=== PATIENT | female | born 1980 | race Two or more races ===

== ENCOUNTER 2018-07-14 15:00 | Inpatient (IN) | END 2018-07-16 16:54 | disposition home or self-care (01) | DRG 807 ==

== ENCOUNTER 2018-11-18 15:22 | Day surgery (SDC) | payer MEDICAID ==
[~2018-11-18] VITALS: Ht 162.6 cm; Wt 80.7 kg
[2018-11-18] VITALS (36 sets, daily range): BP systolic 108–152; BP diastolic 55–78; PULSE 78–126; RESP 14–29; Ht 162.6 cm; Wt 80.7 kg
[~2018-11-18 15:22] MED LIST: CEFAZOLIN 1 GM INJ ONE; CEFAZOLIN 2 GM/50 ML (PMX) 50 ML (FOR WT < 120 KG) IVPB ONE; DESFLURANE 15 MIN ONE; DEXAMETHASONE 4 MG/ML 5 ML INJ ONE; LACTATED RINGER'S 1,000 ML IV SCH; LIDOCAINE 100 MG SYRINGE ONE; ONDANSETRON 4 MG INJ ONE; PREN1TAB71 PO; PROPOFOL 100 ML ONE; ROCURONIUM 50 MG INJ ONE; SOD CHLORIDE 0.9% 1,000 ML IV SCH; SUCCINYLCHOLINE CHLORIDE 100 MG/5 ML SYG IV ONE
[2018-11-18] MEDS ORDERED: LABETALOL HCL 20MG INJ IV PRN (15:30)
[2018-11-18] MEDS ORDERED: METOCLOPRAMIDE 10 MG INJ IV PRN (15:30)
[2018-11-18] MEDS ORDERED: FENTAnyl 50 MCG/ML VIAL IV PRN ×2 (15:30)
[2018-11-18] MEDS ORDERED: hydrALAzine 20 MG INJ IV PRN (15:30)
[2018-11-18] MEDS ORDERED: HYDROmorphONE 1 MG/5 ML IV SYRINGE IV PRN ×2 (15:30)
[2018-11-18] MEDS ORDERED: MEPERIDINE 25 MG INJ IV PRN (15:30)
[2018-11-18] MEDS ORDERED: ONDANSETRON 4 MG INJ IV PRN (15:30)
--- NOTE | 2018-11-18 15:32 | PREAC ---
Date/Time of Note Date/Time of Note DATE: 11/18/18 TIME: 15:31 Anesthesia Eval and Record Evaluation Time Pre-Procedure Interview DATE: 11/18/18 TIME: 15:31 Age 38 Sex female NPO: 8 hrs Preoperative diagnosis sterilization Planned procedure BILATERAL LAPAROSCOPIC TUBAL LIGATION Past Medical History Past Medical History: Includes GI: Obesity Surgery & Anesthesia Issues No known issue Meds Anticoagulation: No Beta Yoan within 24 hr: No Reason Beta Yoan not given: Pt. not on B-Yoan Reported Medications Vit No.130/Iron/FA ( Tablet) 1 Each Tablet, 1 EACH PO, TAB 07/14/18 Current Medications Lactated Ringer's 1,000 ml @ 25 mls/hr Q24H IV ; Start 11/18/18 at 13:00 Sodium Chloride 1,000 ml @ 25 mls/hr Q24H IV ; Start 11/18/18 at 13:00 Meds reviewed: Yes Allergies Coded Allergies: No Known Allergy (Verified , 07/14/18) Allergies Reviewed: Yes Labs/Studies Labs Reviewed: Reviewed by anesthesiologist test: Negative Pre-procedure Exam Airway: Adequate mouth opening Mallampati: Mallampati II Teeth: Normal Lung: Normal Heart: Normal ASA Physical Status ASA physical status: 2 Emergency: None Planned Anesthetic General/MAC: ETT Pre-operative Attestations Prior to commencing anesthesia and surgery, the patient was re-evaluated, there was verification of: *The patient's identity *The results of appropriate recent lab work and preoperative vital signs *The above evaluation not changing prior to induction *Anesthetic plan, risk benefits, alternative and complications discussed with patient/family; questions answered; patient/family understands, accepts and wishes to proceed. JEREMY DOUGHERTY Nov 18, 2018 15:32
[2018-11-18] MEDS ORDERED: BUPIVACAINE 0.5%/EPI (SDV) 30 ML INJ ONE (16:11)
--- NOTE | 2018-11-18 16:26 | HP ---
Date/Time of Note Date/Time of Note DATE: 11/18/18 TIME: 16:23 Assessment/Plan VTE Prophylaxis SCD applied (from [facility]): No SCD contraindicated: low risk/ambulating Pharmacological prophylaxis: NA/contraindicated Pharm contraindication: low risk/ambulating Assessment/Plan Assessment/Plan Multiparity with desire for sterilization We will proceed with laparoscopic versus mini laparotomy tubal fulguration versus tubal ligation Result Diagram: 11/18/18 1600 Results 24hrs Laboratory Tests Test 11/18/18 16:00 White Blood Count 6.5 Red Blood Count 4.41 Hemoglobin 13.0 # Hematocrit 39.3 # Mean Corpuscular Volume 89.1 Mean Corpuscular Hemoglobin 29.5 Mean Corpuscular Hemoglobin Concent 33.1 Red Cell Distribution Width 12.7 Platelet Count 220 # Mean Platelet Volume 9.8 Immature Granulocytes % 0.300 Neutrophils % 59.4 Lymphocytes % 33.5 Monocytes % 6.2 Eosinophils % 0.3 Basophils % 0.3 Nucleated Red Blood Cells % 0.0 Immature Granulocytes # 0.020 Neutrophils # 3.9 Lymphocytes # 2.2 Monocytes # 0.4 Eosinophils # 0.0 Basophils # 0.0 Nucleated Red Blood Cells # 0.0 HPI/ROS Admit Date/Time Admit Date/Time November 18, 2018 Hx of Present Illness 38-year-old female para 5 status post vaginal delivery 4 weeks ago with subsequent Depo-Provera injection here for sterilization proceed ROS Constitutional: no complaints, improved Eyes: no complaints ENT: no complaints Respiratory: no complaints Cardiovascular: no complaints Gastrointestinal: no complaints Genitourinary: no complaints Musculoskeletal: no complaints Skin: no complaints Neurologic: no complaints Endocrine: no complaints Lymphatic: no complaints Psychological: no complaints, nl mood/affect Immunologic: no complaints PMH/Family/Social Past Medical History Medical History: no pertinent history Medications Current Medications Lactated Ringer's 1,000 ml @ 25 mls/hr Q24H IV ; Start 11/18/18 at 13:00 Sodium Chloride 1,000 ml @ 25 mls/hr Q24H IV ; Start 11/18/18 at 13:00 Hydromorphone HCl (Dilaudid) 0.2 mg PACU PRN IV MILD PAIN 1-3; Start 11/18/18 at 15:30; Stop 11/18/18 at 19:30 Hydromorphone HCl (Dilaudid) 0.4 mg PACU PRN IV MOD PAIN 4-6; Start 11/18/18 at 15:30; Stop 11/18/18 at 19:30 Fentanyl (Sublimaze) 25 mcg PACU ORDER PRN IV MILD PAIN 1-3; Start 11/18/18 at 15:30; Stop 11/18/18 at 19:30 Fentanyl (Sublimaze) 50 mcg PACU ORDER PRN IV MOD PAIN 4-6; Start 11/18/18 at 15:30; Stop 11/18/18 at 19:30 Ondansetron HCl (Zofran Inj) 4 mg PACU ORDER PRN IV NAUSEA/VOMITING; Start 11/18/18 at 15:30; Stop 11/18/18 at 19:30 Metoclopramide HCl (Reglan) 10 mg PACU ORDER PRN IV NAUSEA/VOMITING; Start 11/18/18 at 15:30; Stop 11/18/18 at 19:30 Labetalol HCl (Labetalol) 5 mg PACU ORDER PRN IV HIGH BLOOD PRESSURE; Start 11/18/18 at 15:30; Stop 11/18/18 at 19:30 Hydralazine HCl (Apresoline) 5 mg PACU ORDER PRN IV HIGH BLOOD PRESSURE; Start 11/18/18 at 15:30; Stop 11/18/18 at 19:30 Meperidine HCl (Demerol) 25 mg PACU ORDER PRN IV .RIGORS; Start 11/18/18 at 15:30; Stop 11/18/18 at 19:30 Coded Allergies: No Known Allergy (Verified , 07/14/18) Past Surgical History Past Surgical Hx: no surgical history Family History Significant Family History: no pertinent family hx Social History Alcohol Use: none Smoking Status: Never smoker Drug Use: none Exam/Review of Systems Exam Exam Patient does not appears to be in any acute distress and or distress Constitutional: alert, oriented, well developed Psych: no complaints, nl mood/affect Head: normocephalic, atraumatic Eyes: nl conjunctiva, EOMI, nl lids, nl sclera, PERRL ENMT: nl external ears & nose, nl lips & teeth, nl nasal mucosa & septum Neck: supple, non-tender Respiratory: clear to auscultation, normal air movement Cardiovascular: regular rate and rhythm, nl pulses Gastrointestinal: soft, nl liver, spleen, non-tender Musculoskeletal: nl extremities to inspection Extremities: normal pulses Neurological: STEWARD/STEWARDESS SECOND CLASS II-XII intact, nl mental status, nl speech, nl strength Skin: nl turgor; No rash or lesions Lymph: nl lymph nodes NANCY LANE MD Nov 18, 2018 16:26
[2018-11-18] MEDS ORDERED: FENTAnyl 50 MCG/ML VIAL ONE ×2 (16:33→17:51)
[2018-11-18] MEDS ORDERED: BUPIVACAINE 0.5% (SDV) 30 ML INJ ONE (16:33)
[2018-11-18] MEDS ORDERED: MIDAZOLAM 1 MG/ML 2 ML INJ ONE (16:33)
[2018-11-18] MEDS ORDERED: ROPIVACAINE 0.2% 20 ML VIAL ONE (16:38)
[2018-11-18] MEDS ORDERED: NEOSTIGMINE 3 MG/3 ML SYRINGE ONE (17:40)
[2018-11-18] MEDS ORDERED: GLYCOPYRROLATE 0.4 MG INJ ONE (17:40)
[2018-11-18] MEDS ORDERED: LACTATED RINGER'S 1,000 ML IV SCH (17:50)
[2018-11-18] MEDS ORDERED: KETOROLAC 60 MG INJ IM STA (17:50)
--- NOTE | 2018-11-18 17:58 | PAC ---
Date/Time of Note Date/Time of Note DATE: 11/18/18 TIME: 17:57 Post-Anesthesia Notes Post-Anesthesia Note Last documented vital signs Vital Signs Date Temp Pulse Resp B/P (MAP) Pulse Ox O2 O2 Flow FiO2 Time Delivery Rate 11/18/18 98 98 21 115/86 100 Room Air 1757 Activity: WNL Respiratory function: WNL Cardiovascular function: WNL Mental status: Baseline Pain reasonably controlled: Yes Hydration appropriate: Yes Nausea/Vomiting absent: Yes KERON WYNN DO Nov 18, 2018 17:58
[2018-11-18] MEDS ORDERED: DOXYCYCLINE 100 MG TAB PO ONE (18:00)
[2018-11-18] MEDS ORDERED: BUTORPHANOL 2 MG INJ IM ONE (18:00)
[2018-11-18] MEDS ORDERED: KETOROLAC 30 MG INJ ONE (18:26)
--- NOTE | 2018-11-18 18:34 | OPR ---
Operative Report Planned Procedure Procedure date Nov 18, 2018 Procedure(s) Bilateral tubal fulguration using laparoscope and gyrus Performed by see signature line Anesthesiologist: KELSIE WYNN MD Pre-procedure diagnosis Multiparity with desire for sterilization [id number] Anesthesia Type: [id number] general Post-Procedure Post-procedure diagnosis Status post bilateral tubal fulguration Findings Normal-appearing right and left fallopian tubes and ovaries Estimated Blood Loss: minimal Specimen(s) none Grafts/Implant(s) none Complication(s) none Pt Condition post procedure: stable Disposition: PACU Procedure Description The patient was placed on the OR table in the supine position. General anesthesia was induced. The patient was turned into lithotomy position for vaginal and laparoscopic procedure specifically. Perineal, vaginal, and abdominal area were then prepped with Betadine and draped for a usual laparoscopic procedure and a vaginal procedure. A Gonzales catheter was then inserted into urinary bladder under aseptic condition in operating room and under satisfactory anesthesia, a small speculum was inserted into vagina. Anterior lip of the cervix was secured with a tenaculum. Cervix was brought down to operative field. It was progressively dilated to #6 Hegar. A HUMI elevator was inserted into cervical canal and afterwards uterine cavity. After insufflation of the tube all the other instruments were removed from vaginal cavity. After changing gloves, turning to abdominal side, a small incision was placed just below belly button 0.5 cm in length. A 0.5 cm trocar was introduced inside the incision. The trocar was blunt and pointing toward the uterine dome. The trocar was easily inserted inside the abdominal. A laparoscope was then inserted into the abdominal cavity, making sure the correct cavity was entered. Intra-abdominal cavity was insufflated with CO2. Under direct visualization a small incision was made a 0.5 cm in length about 2 to 3 fingerbreadths above and parallel to the symphysis pubis. A 0.5 cm trocar was then introduced inside the incision. Under direct visualization the second probe was also inserted into abdominal cavity easily. The uterus and fallopian tubes were easily identified. Right fallopian tube was approached first and at least 5 cm of the tube was adequately fulgurated, making sure no live tissue was left in between. The same procedure was done on the left side. Serious care was taken to avoid bowel, bladder, or other intra-abdominal organ injury. At this point, procedure was terminated. The trocar incision sites from inside the abdomen on either side were observed. No bleeding was observed. After removing the laparoscope, the abdomen was desufflated to its normal position. Afterwards, all of the trocar sleeves were removed. Abdominal incisions were closed using annamaria. The HUMI was then discontinued. Also, Gonzales was taken out. The patient was returned to supine position. Estimated blood loss was less than 5 mL. The patient tolerated the procedure very well and was transferred to postanesthesia recovery room in stable and good condition. NANCY LANE MD Nov 18, 2018 18:34
[2018-11-18] MEDS ORDERED: ACETAMINOPHEN 325 MG TAB ONE (19:49)
[2018-11-18] MEDS ORDERED: ACETAMINOPHEN 325 MG TAB PO ONE (20:00)
[2018-11-18] MEDS ORDERED: ONDANSETRON 4 MG INJ ONE (20:09)
[2018-11-18] MEDS ORDERED: ONDANSETRON 4 MG INJ IV STA (20:11)
[2018-11-18] MEDS ORDERED: ACETAMINOPHEN 1000MG/100ML IV 100 ML IVPB ONE (21:00)
== END 2018-11-18 22:15 | disposition home or self-care (01) ==
LOC: SDS 15:22
PROVIDERS: ATTEND Obstetrics & Gynecology
DX: Z30.2 Encounter for sterilization (principal)
CPT/HCPCS: 84702; 85025; 85610; 85730; J0131; J0595; J0690; J1100; J1885; J2001; J2250; J2405; J2710; J2795; J3010